=== PATIENT | male | born 1930 | race Two or more races ===

== ENCOUNTER 2017-09-11 04:23 | Emergency (ER) | payer OTHER ==
[~2017-09-11] VITALS: Ht 172.7 cm; Wt 90.0 kg
[2017-09-11 04:26] VITALS: BP 103/60
[2017-09-11] MEDS ORDERED: NITROGLYCERIN 0.4MG TABLET SL SL ONE (05:00)
[2017-09-11] MEDS ORDERED: SODIUM CHLORIDE 0.9% 1,000 ML IV ONE (05:00)
[2017-09-11] MEDS ORDERED: ASPIRIN 325MG TABLET PO ONE (05:00)
[2017-09-11] MEDS ORDERED: MORPHINE SULFATE 4 MG/ML CPJ (NOT FOR IM USE) IV ONE (05:15)
[2017-09-11] MEDS ORDERED: CALCIUM GLUCONATE 100MG/ML 10ML VIAL IV ONE (05:15)
[2017-09-11 05:29] LABS: HEMATOCRIT. 41.6 % (42.0-52.0); HEMOGLOBIN. 13.7 g/dL (14.0-18.0); MEAN CORPUSCULAR HEMOGLOBIN 31.5 pg (28.0-32.0); MEAN CORPUSCULAR VOLUME 95.7 fL (80.0-94.0); MEAN PLATELET VOLUME 7.9 fl (7.4-10.4); PLATELET 223 x1000/uL (130-400); RED BLOOD CELL COUNT 4.34 mill/uL (4.7-6.1); RED CELL DISTRIBUTION WIDTH 14.8 % (11.6-14.6)
[2017-09-11 05:36] LABS: INR 1.2; PARTIAL THROMBOPLASTIN TIME 29.9 sec (23.4-31.0); PROTHROMBIN TIME 12.6 sec (9.4-11.6)
[2017-09-11 05:45] LABS: CARBON DIOXIDE 25 mEq/L (21-32); CHLORIDE 92 mEq/L (98-107); TROPONIN I 0.12 ng/mL (0.00-0.04)
[2017-09-11 06:19] LABS: PLATELET ESTIMATE NORMAL
== END 2017-09-11 05:55 | disposition short-term general hospital (02) ==
LOC: ER 04:23
DX: I21.29 ST elevation (STEMI) myocardial infarction involving other sites (principal); E11.9 Type 2 diabetes mellitus without complications; I10 Essential (primary) hypertension; D72.829 Elevated white blood cell count, unspecified; E87.2 Acidosis; Z79.82 Long term (current) use of aspirin; Z87.440 Personal history of urinary (tract) infections
CPT/HCPCS: 36415; 80053; 83605; 83690; 83880; 84484; 85025; 85610; 85730; 87040; 87077; 87186; 93005; 96361; 96374; 96375; 99291; J0610; J2270; J7030